=== PATIENT | female | born 1980 | race Caucasian/White ===

== ENCOUNTER 2016-12-25 03:29 | Emergency (ER) | payer MEDICAID ==
[2016-12-25 05:01] VITALS: BP 137/96
== END 2016-12-25 05:01 | disposition other institution (70) ==
LOC: ED 03:29
DX: S50.812A Abrasion of left forearm, initial encounter (principal); R07.9 Chest pain, unspecified; V89.2XXA Person injured in unspecified motor-vehicle accident, traffic, initial encounter; Y93.89 Activity, other specified; Y92.488 Other paved roadways as the place of occurrence of the external cause; Y99.8 Other external cause status
CPT/HCPCS: Q0092

== ENCOUNTER 2016-12-25 03:29 | Emergency (ER) | payer OTHER | END 2016-12-25 05:01 | disposition other institution (70) | LOC: ED 03:29 ==

== ENCOUNTER 2017-03-05 20:53 | Emergency (ER) | payer MEDICAID ==
[2017-03-05 22:29] VITALS: BP 128/79
== END 2017-03-05 22:29 | disposition home or self-care (01) ==
LOC: ED 20:53
DX: S62.002A Unspecified fracture of navicular [scaphoid] bone of left wrist, initial encounter for closed fracture (principal); W17.89XA Other fall from one level to another, initial encounter; Y93.89 Activity, other specified; Y92.89 Other specified places as the place of occurrence of the external cause; Y99.8 Other external cause status
CPT/HCPCS: Q0092